=== PATIENT | male | born 1970 | race Caucasian/White ===

== ENCOUNTER 2020-04-08 13:34 | Emergency (ER) | payer OTHER, SELFPAY ==
[2020-04-08 13:55] VITALS: BP 145/98; PULSE 66; RESP 16; TEMP 36.9; O2SAT 98
[2020-04-08 14:40] LABS: Basophils Absolute Auto 0.1 K/mm3 (0.0-0.1); Basophils Percent Auto 0.7 % (0.2-1.2); Eosinophils Absolute Auto 0.1 K/mm3 (0-0.3); Eosinophils Percent Auto 1.7 % (0-4.4); Hematocrit 42.6 % (42.0-52.0); Hemoglobin 14.7 g/dL (14.0-18.0); Immature Granulocyte Absolute 0.02 K/mm3 (0.00-0.031); Immature Granulocyte Percent A 0.3 % (0-0.5); Lymphocytes Absolute Auto 1.85 K/mm3 (0.9-3.2); Lymphocytes Percent Auto 26.7 % (18.3-44.2); Mean Corpuscular HGB Conc 34.5 g/dl (32-36); Mean Corpuscular Hemoglobin 32.3 pg (26-34); Mean Corpuscular Volume 93.6 fl (80-100); Mean Platelet Volume 9.3 fl (7.4-10.4); Monocytes Absolute Auto 0.7 K/mm3 (0.1-0.6); Monocytes Percent Auto 9.5 % (2.6-8.5); Neutrophils Absolute Auto 4.2 K/mm3 (1.3-6.7); Neutrophils Percent Auto 61.1 % (45.5-73.1); Platelet Count Result 233 k/mm3 (150-375); Red Blood Count 4.55 M/mm3 (4.6-6.20); Red Cell Distribution Width 11.5 % (11.5-14.5); White Blood Count 6.9 K/mm3 (4.5-10.0)
[2020-04-08 14:58] LABS: CRP 0.6 mg/dL (<1.0)
--- NOTE | 2020-04-08 15:59 | ED.LOWEXIN ---
HPI - Extremity Injury (Lower) General Chief Complaint: Extremity Injury, Lower Stated Complaint: r/o dvt per urgent care Time Seen by Provider: 04/08/20 13:55 Source: patient Mode of arrival: ambulatory Limitations: no limitations History of Present Illness HPI Narrative: 49-year-old man Basically pretty healthy Complains of 1 day of pain and swelling behind his right knee He was evaluated at a urgent care earlier and they thought he might be at risk for DVT and referred him to the ER Patient notes that the pain started yesterday afternoon but got worse after he went for a walk today There was some question on his part of whether he might have been bitten or stung Notably his tenderness is pretty well localized in the medial posterior knee/distal thigh and there is no swelling or pain lower down in the calf Also he has no particular risk factors for venous thromboembolism Related Data Allergies Allergy/AdvReac Type Severity Reaction Status Date / Time latex Allergy Unknown Verified 12/12/17 12:42 Review of Systems Review of Systems: All systems reviewed & are unremarkable except as noted in HPI and below Constitutional: Constitutional: Denies chills, Denies fever(s) and Denies weakness Cardiovascular: Cardiovascular: Denies chest pain Respiratory: Respiratory: Denies cough and Denies dyspnea Musculoskeletal: Musculoskeletal: Denies myalgias, Reports arthralgias and Denies joint swelling Integumentary/Breasts: Comments: Redness PMFSH Family History Family History (Updated 12/12/17 @ 12:44 by DOCTOR UNKNOWN) Father Family history of cardiovascular disease Sibling Family history of cardiovascular disease Social History Social History Gender identity (if verbalized by the patient): Female Exam Const: General: no acute distress, well developed and awake Nutritional Appearance: well nourished Orientation/consciousness: patient oriented x3 (alert) Limitations: no limitations HENMT: Head: normocephalic and atraumatic Ears: external ears normal General nose exam: No nasal discharge present and no epistaxis Face and sinus: face symmetric Eyes: Conjunctivae: conjunctivae normal Sclera: sclerae normal EOM: EOMs intact bilaterally Neck: Neck: normal visual inspection, supple and no JVD Chest: Chest palpation & inspection: deferred Resp: Effort & Inspection: normal respiratory effort Auscultation: other (BS =) Cardio: Heart sounds: no gallops GI: Inspection: normal to inspection Back/Spine/Pelvis: Thoracic/Lumbar Spine: thoracic and lumbar spine normal to inspection Skin: General skin exam: normal color and no rashes or lesions noted Neuro: General: patient oriented x3 (alert) and moves all extremities Cranial nerves: Yes facial symmetry Speech: normal speech Extrem: General: full ROM Other: There is an area of faint erythema, mild induration, and tenderness measuring about 4 5 cm in the lower medial right thigh and the soft tissue overlying the insertion of the semimembranous muscles There may be a tiny pinpoint area which could be a bite in the center of this area There is no calf swelling or tenderness Psych: Affect: normal affect Course Vital Signs Vital signs: Vital Signs Temperature 36.9 C 04/08/20 13:55 Pulse Rate 66 04/08/20 13:55 Respiratory Rate 16 04/08/20 13:55 Blood Pressure 145/98 H 04/08/20 13:55 Pulse Oximetry 98 04/08/20 13:55 Temperature 36.9 C 04/08/20 13:55 Pulse Rate 66 04/08/20 13:55 Respiratory Rate 16 04/08/20 13:55 Blood Pressure 145/98 H 04/08/20 13:55 Pulse Oximetry 98 04/08/20 13:55 MDM - Extremity Injury (Lower) MDM Narrative Medical decision making narrative: Discussed with patient that exam and labs are inconsistent with DVT and that he probably has cellulitis, possibly staph, and possibility of an insect bite of some kind cannot be fully rule out Lab Data Result diagrams: 04/08/20 14:33
[2020-04-08 16:55] VITALS: BP 158/98; PULSE 73; RESP 16; O2SAT 99
== END 2020-04-08 16:55 | disposition home or self-care (01) ==
PROVIDERS: Emergency Provider Emergency Medicine
DX: L03.115 Cellulitis of right lower limb (principal)
CPT/HCPCS: 36415; 85025; 85380; 86140; 99283

== ENCOUNTER 2024-07-22 13:41 | Emergency (ER) | payer OTHER, SELFPAY ==
[2024-07-22 13:46] VITALS: BP 151/98; PULSE 84; RESP 14; TEMP 36.7; O2SAT 99
--- NOTE | 2024-07-22 13:59 | ED.LOWEXIN ---
HPI - Extremity Injury (Lower) General Chief Complaint: Extremity Injury, Lower <Lorraine Silver APRN - Last Filed: 07/22/24 14:02> Stated Complaint: left foot pain <Lorraine Silver APRN - Last Filed: 07/22/24 14:02> Time Seen by Provider: 07/22/24 13:45 <Lorraine Silver APRN - Last Filed: 07/22/24 14:02> Focused HPI: Patient is a 54-year-old male who presents to the ER with complaints of left lower extremity redness and swelling. He reports he noticed the extremity starting to swell yesterday. Patient reports he has pain in his left foot, ankle, calf, thigh. He also reports area has become tight and warm. Patient reports his only medical history is hyperlipidemia. Patient denies any shortness of breath, chest pain, back pain, recent fevers. GENERAL: Well-appearing, well-nourished, and in no acute distress. HEAD: Normocephalic, atraumatic. CHEST: Clear to auscultation. ?No respiratory distress. HEART: IRREGULAR, no history of atrial fib or other cardiac conditions NEURO: ?Alert and oriented x3. Patient screened in triage and initial orders placed.? ?Additional care and disposition to be based upon?diagnostic testing and treatment. <Lorraine Silver APRN - Last Filed: 07/22/24 14:02> History of Present Illness HPI Narrative: Agree with HPI. Erythema left foot at the MTP is extending up the ankle and then proximally towards the medial proximal thigh. No chest pain or shortness of breath. No systemic symptoms. Patient was asymptomatic when he had some atrial fibrillation in triage. Currently in sinus rhythm. <Arthur Messer MD - Last Filed: 07/22/24 19:08> Related Data Allergies/Adverse Reactions: Allergies Allergy/AdvReac Type Severity Reaction Status Date / Time latex Allergy Unknown Unknown Verified 07/22/24 15:17 <Lorraine Silver APRN - Last Filed: 07/22/24 14:02> Review of Systems Review of Systems: All systems reviewed & are unremarkable except as noted in HPI and below <Arthur Messer MD - Last Filed: 07/22/24 19:08> Constitutional: Constitutional: Reports no additional constitutional complaints <Arthur Messer MD - Last Filed: 07/22/24 19:08> Cardiovascular: Cardiovascular: Reports no additional cardiovascular complaints <Arthur Messer MD - Last Filed: 07/22/24 19:08> Respiratory: Respiratory: Reports no additional respiratory complaints <Artuhr Messer MD - Last Filed: 07/22/24 19:08> Gastrointestinal: Gastrointestinal: Reports no additional gastrointestinal complaints <Arthur Messer MD - Last Filed: 07/22/24 19:08> Musculoskeletal: Musculoskeletal: Reports no additional musculoskeletal complaints <Arthur Messer MD - Last Filed: 07/22/24 19:08> Integumentary/Breasts: Skin/Breast: Reports system reviewed and no additional complaints, except as docu <Arthur Messer MD - Last Filed: 07/22/24 19:08> PMFSH Past Medical History Medical History: Medical History (Updated 07/22/24 @ 19:07 by Arthur Messer MD) Hyperlipidemia Hypertension <Lorraine Silver [employer] - Last Filed: 07/22/24 14:02> Family History Family History: Family History (Updated 12/12/17 @ 12:44 by DOCTOR UNKNOWN) Father Family history of cardiovascular disease Sibling Family history of cardiovascular disease <Lorraine Silver APRN - Last Filed: 07/22/24 14:02> Social History Social History: Social History Gender identity (if verbalized by the patient): Female <Lorraine Silver APRN - Last Filed: 07/22/24 14:02> Exam Narrative: GENERAL: Well-appearing, well-nourished, and in no acute distress. HEAD: Normocephalic, atraumatic. ENT: Mucous membranes moist. NECK: Supple. CHEST: Clear to auscultation. No respiratory distress. HEART: Regular rate and rhythm. Normal peripheral pulses. EXTREMITIES: Normal range of motion. Erythema of the left foot especially at the MTPs in toes extending up to the ankle where there is mild edema. Lymphangitic streaking to the proximal thigh on the left medially. SKIN: Warm, dry, no rash. See above NEURO: Alert and oriented x3. PSYCH: Normal mood and affect. <Arthur Messer MD - Last Filed: 07/22/24 19:08> Course Course Emergency Course: Patient resting comfortably. Discussed results and treatment plan. Was briefly in AFib but it self resolved and he is now in a sinus rhythm. Discussed with Cardiology. Outpatient follow-up, no rate control medication or anticoagulation at this time. Discussed return precautions. <Arthur Messer MD - Last Filed: 07/22/24 19:08> Vital Signs Vital signs: Vital Signs Temperature 98.0 F 07/22/24 13:46 Pulse Rate 84 07/22/24 13:46 Respiratory Rate 14 07/22/24 13:46 Blood Pressure 151/98 H 07/22/24 13:46 Pulse Oximetry 99 07/22/24 13:46 Oxygen Delivery Room Air 07/22/24 13:46 Temperature 98.0 F 07/22/24 13:46 Pulse Rate 84 07/22/24 13:46 Respiratory Rate 14 07/22/24 13:46 Blood Pressure 151/98 H 07/22/24 13:46 Pulse Oximetry 99 07/22/24 13:46 Oxygen Delivery Room Air 07/22/24 13:46 <Lorraine Silver, [employer] - Last Filed: 07/22/24 14:02> Vital Signs Temperature 98.0 F 07/22/24 13:46 Pulse Rate 84 07/22/24 13:46 Respiratory Rate 14 07/22/24 13:46 Blood Pressure 151/98 H 07/22/24 13:46 Pulse Oximetry 99 07/22/24 13:46 Oxygen Delivery Room Air 07/22/24 13:46 Temperature 98.0 F 07/22/24 13:46 Pulse Rate 84 07/22/24 13:46 Respiratory Rate 14 07/22/24 13:46 Blood Pressure 151/98 H 07/22/24 13:46 Pulse Oximetry 99 07/22/24 13:46 Oxygen Delivery Room Air 07/22/24 13:46 <Arthur Messer MD - Last Filed: 07/22/24 19:08> MDM - Extremity Injury (Lower) Lab Data Result diagrams: 07/22/24 14:15 07/22/24 14:15 <Lorraine Silver, [employer] - Last Filed: 07/22/24 14:02> Labs: Lab Results 07/22/24 Range/Units 14:15 WBC 12.7 H (4.5-10.0) K/mm3 RBC 4.75 (4.6-6.20) M/mm3 Hgb 15.4 (14.0-18.0) g/dL Hct 43.4 (42.0-52.0) % MCV 91.4 (80-100) fl MCH 32.4 (26-34) pg MCHC 35.5 (32-36) g/dl RDW 11.8 (11.5-14.5) % Plt Count 289 (150-375) k/mm3 MPV 9.0 (7.4-10.4) fl Immature Gran % (Auto) 0.6 H (0-0.5) % Neut % (Auto) 72.4 (45.5-73.1) % Lymph % (Auto) 12.4 L (18.3-44.2) % Robertson % (Auto) 9.8 H (2.6-8.5) % Eos % (Auto) 4.4 (0-4.4) % Baso % (Auto) 0.4 (0.2-1.2) % Lymph # (Auto) 1.57 (0.9-3.2) K/mm3 Robertson # (Auto) 1.2 H (0.1-0.6) K/mm3 Eos # (Auto) 0.6 H (0-0.3) K/mm3 Baso # (Auto) 0.1 (0.0-0.1) K/mm3 Abs Immat Gran (auto) 0.08 H (0.00-0.031) K/mm3 Absolute Neuts (auto) 9.2 H (1.3-6.7) K/mm3 Absolute Nucleated RBC 0.000 (0.0-0.012) K/mm3 Nucleated RBC % 0.0 (0.0-0.2) % PT 15.1 H (11.1-14.7) Seconds INR 1.2 APTT 31.0 (22.3-36.8) Seconds Sodium 131 L (137-145) mmol/L Potassium 3.8 (3.4-5.0) mmol/L Chloride 98 (98-107) mmol/L Carbon Dioxide 21 L (22-30) mmol/L Anion Gap 12 (4-12) mmol/L BUN 9 (9-20) mg/dL Creatinine 0.72 (0.7-1.3) mg/dL Estim Creat Clear Calc 120 ml/min Estimated GFR > 60 (59 - ) Glucose 125 H (65-110) mg/dL Lactic Acid 1.4 (0.7-2.0) mmol/L Calcium 9.0 (8.4-10.2) mg/dL Total Bilirubin 1.1 (0.2-1.3) mg/dL AST 51 (17-59) U/L ALT 57 H (6-50) U/L Alkaline Phosphatase 75 (38-126) U/L Troponin I 0.020 (0.000-0.034) ng/mL NT-Pro-B Natriuret Pep 1310 H (19.9-100) pg/mL Total Protein 8.0 (6.3-8.2) g/dL Albumin 4.3 (3.5-5.1) g/dL <Lorraine Silver, [employer] - Last Filed: 07/22/24 14:02> Lab Results 07/22/24 Range/Units 14:15 WBC 12.7 H (4.5-10.0) K/mm3 RBC 4.75 (4.6-6.20) M/mm3 Hgb 15.4 (14.0-18.0) g/dL Hct 43.4 (42.0-52.0) % MCV 91.4 (80-100) fl MCH 32.4 (26-34) pg MCHC 35.5 (32-36) g/dl RDW 11.8 (11.5-14.5) % Plt Count 289 (150-375) k/mm3 MPV 9.0 (7.4-10.4) fl Immature Gran % (Auto) 0.6 H (0-0.5) % Neut % (Auto) 72.4 (45.5-73.1) % Lymph % (Auto) 12.4 L (18.3-44.2) % Robertson % (Auto) 9.8 H (2.6-8.5) % Eos % (Auto) 4.4 (0-4.4) % Baso % (Auto) 0.4 (0.2-1.2) % Lymph # (Auto) 1.57 (0.9-3.2) K/mm3 Robertson # (Auto) 1.2 H (0.1-0.6) K/mm3 Eos # (Auto) 0.6 H (0-0.3) K/mm3 Baso # (Auto) 0.1 (0.0-0.1) K/mm3 Abs Immat Gran (auto) 0.08 H (0.00-0.031) K/mm3 Absolute Neuts (auto) 9.2 H (1.3-6.7) K/mm3 Absolute Nucleated RBC 0.000 (0.0-0.012) K/mm3 Nucleated RBC % 0.0 (0.0-0.2) % PT 15.1 H (11.1-14.7) Seconds INR 1.2 APTT 31.0 (22.3-36.8) Seconds Sodium 131 L (137-145) mmol/L Potassium 3.8 (3.4-5.0) mmol/L Chloride 98 (98-107) mmol/L Carbon Dioxide 21 L (22-30) mmol/L Anion Gap 12 (4-12) mmol/L BUN 9 (9-20) mg/dL Creatinine 0.72 (0.7-1.3) mg/dL Estim Creat Clear Calc 120 ml/min Estimated GFR > 60 (59 - ) Glucose 125 H (65-110) mg/dL Lactic Acid 1.4 (0.7-2.0) mmol/L Calcium 9.0 (8.4-10.2) mg/dL Total Bilirubin 1.1 (0.2-1.3) mg/dL AST 51 (17-59) U/L ALT 57 H (6-50) U/L Alkaline Phosphatase 75 (38-126) U/L Troponin I 0.020 (0.000-0.034) ng/mL NT-Pro-B Natriuret Pep 1310 H (19.9-100) pg/mL Total Protein 8.0 (6.3-8.2) g/dL Albumin 4.3 (3.5-5.1) g/dL <Arthur Messer MD - Last Filed: 07/22/24 19:08> Imaging Data Radiologist's impression: ITS Impressions Venous Doppler Study 07/22/24 14:47 IMPRESSION: 1. No deep venous thrombosis. Ankle X-Ray 07/22/24 14:54 IMPRESSION: 1. No acute osseous abnormality. Foot X-Ray 07/22/24 14:54 IMPRESSION: 1. No acute osseous abnormality. <Arthur Messer MD - Last Filed: 07/22/24 19:08> Discharge Plan Discharge Clinical Impression: Cellulitis and abscess of left leg, A-fib <Lorraine Silver APRN - Last Filed: 07/22/24 14:02> Patient Disposition: Home, Self-Care <Lorraine Silver APRN - Last Filed: 07/22/24 14:02> Condition: Stable <Lorraine Silver APRN - Last Filed: 07/22/24 14:02> Instructions: Antibiotic Form, A-fib (Atrial Fibrillation) (ED), Cellulitis (ED) <Lorraine Silver APRN - Last Filed: 07/22/24 14:02> Additional Instructions: Return ER if your redness and swelling is worsening, you have fever 100.4? F, you cannot keep down food/water/medication, or you have additional concerns. <Lorraine Silver APRN - Last Filed: 07/22/24 14:02> Patient Language: Wallisian <Lorraine Silver APRN - Last Filed: 07/22/24 14:02> Prescriptions: New sulfamethoxazole-trimethoprim [Bactrim DS] 800-160 mg tablet 1 tablet PO Q12H Qty: 20 0RF hydrocodone-acetaminophen 5-325 mg tablet 1 tablet PO Q6H PRN (Reason: pain) Qty: 10 0RF No Action sulfamethoxazole-trimethoprim [Bactrim DS] 800-160 mg tablet 2 tablet PO Q12H Qty: 28 0RF <Lorraine Silver APRN - Last Filed: 07/22/24 14:02> Follow-up/Referrals: Eusebio Chapin MD [Physician] - 1 Week (OUR OFFICE WILL CALL YOU WITH APPOINTMENT INFORMATION) Farhat Madrigal MD [Physician] - 1 Week PHYSICIAN,SECONDARY SET UP MAN [Non-Staff] - <Lorraine Silver, [employer]ER - Last Filed: 07/22/24 14:02>
[2024-07-22 14:22] LABS: Basophils Absolute Auto 0.1 K/mm3 (0.0-0.1); Basophils Percent Auto 0.4 % (0.2-1.2); Eosinophils Absolute Auto 0.6 K/mm3 (0-0.3); Eosinophils Percent Auto 4.4 % (0-4.4); Hematocrit 43.4 % (42.0-52.0); Hemoglobin 15.4 g/dL (14.0-18.0); Immature Granulocyte Absolute 0.08 K/mm3 (0.00-0.031); Immature Granulocyte Percent A 0.6 % (0-0.5); Lymphocytes Absolute Auto 1.57 K/mm3 (0.9-3.2); Lymphocytes Percent Auto 12.4 % (18.3-44.2); Mean Corpuscular HGB Conc 35.5 g/dl (32-36); Mean Corpuscular Hemoglobin 32.4 pg (26-34); Mean Corpuscular Volume 91.4 fl (80-100); Monocytes Absolute Auto 1.2 K/mm3 (0.1-0.6); Monocytes Percent Auto 9.8 % (2.6-8.5); Neutrophils Absolute Auto 9.2 K/mm3 (1.3-6.7); Neutrophils Percent Auto 72.4 % (45.5-73.1); Platelet Count Result 289 k/mm3 (150-375); Red Blood Count 4.75 M/mm3 (4.6-6.20); Red Cell Distribution Width 11.8 % (11.5-14.5); White Blood Count 12.7 K/mm3 (4.5-10.0)
[2024-07-22 14:33] LABS: Alanine Aminotransferase 57 U/L (6-50); Albumin Level 4.3 g/dL (3.5-5.1); Alkaline Phosphatase 75 U/L (38-126); Anion Gap 12 mmol/L (4-12); Aspartate Amino Transferase 51 U/L (17-59); Bilirubin,Total 1.1 mg/dL (0.2-1.3); Blood Urea Nitrogen 9 mg/dL (9-20); Carbon Dioxide 21 mmol/L (22-30); Chloride 98 mmol/L (98-107); Estimated CRCL calculation 120 ml/min; Estimated Glomerular Filt Rate > 60; Glucose 125 mg/dL (65-110); INR 1.2; Lactic Acid Reflex 1.4 mmol/L (0.7-2.0); Potassium 3.8 mmol/L (3.4-5.0); Prothrombin Time 15.1 Seconds (11.1-14.7); Sodium 131 mmol/L (137-145)
[2024-07-22 15:46] LABS: NT Pro B Type Natriuretic Pept 1310 pg/mL (19.9-100)
== END 2024-07-22 16:18 | disposition home or self-care (01) ==
PROVIDERS: Registered Nurse; Emergency Provider Emergency Medicine
DX: L03.116 Cellulitis of left lower limb (principal); L02.416 Cutaneous abscess of left lower limb; I48.91 Unspecified atrial fibrillation; E78.5 Hyperlipidemia, unspecified; I10 Essential (primary) hypertension
CPT/HCPCS: 36415; 73610; 73630; 80053; 83605; 83880; 84484; 85025; 85610; 85730; 93005; 93971; 99284

== ENCOUNTER 2024-07-26 09:27 | Emergency (ER) | payer OTHER, SELFPAY ==
[2024-07-26 09:29] VITALS: BP 145/89; PULSE 96; RESP 20; TEMP 36.6; O2SAT 100
--- OUTSIDE RECORDS SUMMARY | 2024-07-26 10:00 | XMS_ITS | Data Portability ---
Author Organization [facility] [employer], Main Office Address [address] [place] [address] Assessment No assessment recorded. Plan of Treatment Reminders Order Date Submit Date Provider Last Modified By Organization Details Last Modified Time Details Appointments None recorded. Lab HbA1c (hemoglobin A1c), blood [address] (Lab), [address] [place], [address], 4 08:17:20 PSA, serum or plasma [address] (Lab), [address] [place], [address], 4 08:17:20 CMP, serum or plasma [address] (Lab), [address] [place], [address], 4 08:17:20 lipid panel, serum [address] (Lab), [address] [place], [address], 4 08:17:20 lipid panel, serum [address], [address] [place], [address], 3 08:16:21 hepatic function panel, serum [address], [address] [place], [address], 3 08:16:21 lipid panel, serum [address] [facility], [address] [place], [address], 20:13:32 TSH, serum, reflex free T4 [address], [address] [place], [address], 08:01:54 CBC w/ auto diff [address] [facility], [address] [place], [address], 19:49:42 PSA, serum or plasma [address], [address] [place], [address], 08:01:55 CMP, serum or plasma [address] [facility], [address] [place], [address], 20:13:26 HbA1c (hemoglobin A1c), blood [address], [address] [place], [address], 08:00:08 Referral None recorded. Procedures cerumen removal using irrigation (PROC) 2023 024 [email or web address] Not available 14:21:51 Surgeries None recorded. Imaging None recorded. Medication Orders Debrox 6.5 % ear drops 2023 024 [facility] #[id number], [address], [place], [place], [id number], 4 11:22:33 lisinopril 10 mg tablet 2023 024 [facility] #36876, [address], [place], [place], [id number], 4 10:23:15 lisinopril 10 mg tablet 2022 023 [facility] #07225, [address], [place], [place], [id number], 3 09:16:35 rosuvastati n 5 mg tablet 2022 023 [facility] #22843, [address], [place], [place], [id number], 3 09:16:34 benzonatate 200 mg capsule [address] [facility]63654, [address] [place], [id number], 4 10:03:52 azithromyci n 250 mg tablet [address] [facility] #73839, [address], [place], [place], [id number], 3 09:06:50 Patient TargetsNo targets recorded. Patient Instructions Encounter Date Encounter Id Patient Instructions Last Modified By Organization Details Last Modified Time 08/17/2022 [id number] 2 week follow up labs, htn, cold symptoms. Not available 08/17/2022 16:46:28 08/31/2022 [id number] 3 mo fu mikhail, htn, lipid. Not available 08/31/2022 09:17:33 Reason for Referral None Reported. Results Created Date Observation Date Name Description Value Unit Range Abnormal Flag Note LastModifiedBy Organization Detail LastModifiedTime 08/19/19 23 08/18/2022 CBC/C OMPLE TE BLD COUNT W/DIF F white blood cells 4.4 x10'3 /uL 4.2-10 .8 Not Available [facility] (Lab) [address] [place], [address], 08/18/2022 19:49:42 08/19/19 23 08/18/2022 CBC/C OMPLE TE BLD COUNT W/DIF F red blood cells 4.95 x10'6 /uL 4.10-5 .80 Not Available [facility] (Lab) [address] [place], [address], 08/18/2022 19:49:42 08/19/19 23 08/18/2022 CBC/C OMPLE TE BLD COUNT W/DIF F hemoglobin 16.1 g/dL 13.2-1 7.0 Not Available [facility] (Lab) [address] [place], [address], 08/18/2022 19:49:42 08/19/19 23 08/18/2022 CBC/C OMPLE TE BLD COUNT W/DIF F hematocrit 46.0 % 39.3-5 0.0 Not Available [facility] (Lab) [address] [place], [address], 08/18/2022 19:49:42 08/19/19 23 08/18/2022 CBC/C OMPLE TE BLD COUNT W/DIF F mean red cell volume 92.9 fL 80.0-9 7.0 Not Available [facility] (Lab) [address] [place], [address], 08/18/2022 19:49:42 08/19/19 23 08/18/2022 CBC/C OMPLE TE BLD COUNT W/DIF F mean red cell hemoglobin 32.5 pg 27.0-3 3.0 Not Available [facility] (Lab) [address] [place], [address], 08/18/2022 19:49:42 08/19/19 23 08/18/2022 CBC/C OMPLE TE BLD COUNT W/DIF F mean RBC HGB concentratio n 35.0 g/dL 31.0-3 6.0 Not Available [facility] (Lab) [address] [place], [address], 08/18/2022 19:49:42 08/19/19 23 08/18/2022 CBC/C OMPLE TE BLD COUNT W/DIF F red cell distribution width 11.9 % 11.8-1 5.5 Not Available [facility] (Lab) [address] [place], [address], 08/18/2022 19:49:42 08/19/19 23 08/18/2022 CBC/C OMPLE TE BLD COUNT W/DIF F platelets 286 x10'3 /uL 150-40 0 Not Available [facility] (Lab) [address] [place], [address], 08/18/2022 19:49:42 08/19/19 23 08/18/2022 CBC/C OMPLE TE BLD COUNT W/DIF F mean platelet volume 10.4 fL 9.0-12 .4 Not Available [facility] (Lab) [address] [place], [address], 08/18/2022 19:49:42 08/19/19 23 08/18/2022 CBC/C OMPLE TE BLD COUNT W/DIF F neutrophils 39.5 % 39.0-7 2.0 Not Available [facility] (Lab) [address] [place], [address], 08/18/2022 19:49:42 08/19/19 23 08/18/2022 CBC/C OMPLE TE BLD COUNT W/DIF F lymphocytes 39.9 % 16.0-4 7.0 Not Available [facility] (Lab) [address] [place], [address], 08/18/2022 19:49:42 08/19/1908/18/2022 CBC/C OMPLE TE BLD COUNT W/DIF F monocytes 13.0 % 5.0-12 .0 high Not Available [facility] (Lab) [address] [place], [address], 08/18/2022 19:49:42 08/19/19 23 08/18/2022 CBC/C OMPLE TE BLD COUNT W/DIF F eosinophils 5.5 % 1.0-7. 0 Not Available [facility] (Lab) [address] [place], [address], 08/18/2022 19:49:42 08/19/19 23 08/18/2022 CBC/C OMPLE TE BLD COUNT W/DIF F basophils 1.6 % 0.0-2. 0 Not Available [facility] (Lab) [address] [place], [address], 08/18/2022 19:49:42 08/19/1908/18/2022 CBC/C OMPLE TE BLD COUNT W/DIF F immature granulocytes 0.5 % 0.00-0 .50 Not Available [facility] (Lab) [address] [place], [address], 08/18/2022 19:49:42 08/19/1908/18/2022 CBC/C OMPLE TE BLD COUNT W/DIF F neutrophils, absolute count 1.74 x10'3 /uL 1.5-8. 0 Not Available [facility] (Lab) [address] [place], [address], 08/18/2022 19:49:42 08/19/19 23 08/18/2022 CBC/C OMPLE TE BLD COUNT W/DIF F lymphocytes, absolute count 1.75 x10'3 /uL 1.07-3 .43 Not Available [facility] (Lab) [address] [place], [address], 08/18/2022 19:49:42 08/19/19 23 08/18/2022 CBC/C OMPLE TE BLD COUNT W/DIF F monocytes, absolute count 0.57 x10'3 /uL 0.29-0 .99 Not Available [facility] (Lab) [address] [place], [address], 08/18/2022 19:49:42 08/19/19 23 08/18/2022 CBC/C OMPLE TE BLD COUNT W/DIF F eosinophils, absolute count 0.24 x10'3 /uL 0.02-0 .53 Not Available [facility] (Lab) [address] [place], [address], 08/18/2022 19:49:42 08/19/19 23 08/18/2022 CBC/C OMPLE TE BLD COUNT W/DIF F basophils, absolute count 0.07 x10'3 /uL 0.01-0 .08 Not Available [facility] (Lab) [address] [place], [address], 08/18/2022 19:49:42 08/19/19 23 08/18/2022 CBC/C OMPLE TE BLD COUNT W/DIF F immature granulocytes ,absolute 0.02 x10'3 /uL 0.00-0 .05 Not Available [facility] (Lab) [address] [place], [address], 08/18/2022 19:49:42 08/19/19 23 08/18/2022 CBC/C OMPLE TE BLD COUNT W/DIF F nucleated red blood cells 0.0 % -0 Not Available [facility] (Lab) [address] [place], [address], 08/18/2022 19:49:42 08/19/19 23 08/18/2022 CBC/C OMPLE TE BLD COUNT W/DIF F NRBC# 0.00 x10'3 /uL Not Available [facility] (Lab) [address] [place], [address], 08/18/2022 19:49:42 08/19/19 23 08/18/2022 COMPR EHENS KARISHMA METAB OLIC PANEL sodium 137 mmol/ L 137-14 5 Not Available [facility] (Lab) [address] [place], [address], 08/18/2022 20:13:26 08/19/19 23 08/18/2022 COMPR EHENS KARISHMA METAB OLIC PANEL potassium 4.5 mmol/ L 3.5-5. 1 Not Available [facility] (Lab) [address] [place], [address], 08/18/2022 20:13:26 08/19/19 23 08/18/2022 COMPR EHENS KARISHMA METAB OLIC PANEL chloride 104 mmol/ L 98-107 Not Available [facility] (Lab) [address] [place], [address], 08/18/2022 20:13:26 08/19/19 23 08/18/2022 COMPR EHENS KARISHMA METAB OLIC PANEL carbon dioxide 26 mmol/ L 22-30 Not Available [facility] (Lab) [address] [place], [address], 08/18/2022 20:13:26 08/19/19 23 08/18/2022 COMPR EHENS KARISHMA METAB OLIC PANEL anion gap 11.5 mmol/ L 14-22 low Not Available [facility] (Lab) [address] [place], [address], 08/18/2022 20:13:26 08/19/19 23 08/18/2022 COMPR EHENS KARISHMA METAB OLIC PANEL glucose 97 mg/dL 70-99 Not Available [facility] (Lab) [address] [facility] [place], [address], 08/18/2022 20:13:26 08/19/19 23 08/18/2022 COMPR EHENS KARISHMA METAB OLIC PANEL BUN 12 mg/dL 8-19 Not Available [facility] (Lab) [address] [place], [address], 08/18/2022 20:13:26 08/19/19 23 08/18/2022 COMPR EHENS KARISHMA METAB OLIC PANEL creatinine 0.75 mg/dL 0.66-1 .25 Not Available [facility] (Lab) [address] [facility] [place], [address], 08/18/2022 20:13:26 08/19/19 23 08/18/2022 COMPR EHENS KARISHMA METAB OLIC PANEL GFR >60 Refer ence Range : [place] [facility] GFR Healt hy Adult : >60 mL/mi n/1.7 3 m2 Chron ic Kidne y Disea se: 15-60 mL/mi n/1.7 3 m2 Kidne y Failu re: <15/m L/min /1.73 m2 www.n iddk. nih.g ov The MDRD study equat ion has not been valid ated in child nunu <18 years of age; pregn ant women ; the elder ly >85 years of age; or in some racia l or ethni c subgr oups, such as [facility] nics. Outsi de the valid ated nai eters , estim ated GFR is less accur ate, requi ring clini eloisa judgm ent on a case- by-ca se basis . Clini eloisa inter preta tion for other races and ages must be made by the clini porter. The MDRD study equat ion has not been valid ated for the evalu ation of serum creat inine relat ed to nutri shraddha l statu s or medic ation usage . For perso ns <18 years of age, a pedia tric GFR calcu lator is avail able on the [facility] websi te: https ://sharmin solis.loly duval.o rg/pr ofess ional s/kdo qi/gf r_cal culat or Not Available [facility] (Lab) [address] [facility] [place], [address], 08/18/2022 20:13:26 08/19/19 23 08/18/2022 COMPR EHENS KARISHMA METAB OLIC PANEL alkaline phosphatase 79 U/L 38-126 Not Available [facility] (Lab) [address] [facility], [address], 08/18/2022 20:13:26 08/19/19 23 08/18/2022 COMPR EHENS KARISHMA METAB OLIC PANEL alanine aminotransfe rase 42 U/L 0-50 Not Available [facility] (Lab) [address] [place], [address], 08/18/2022 20:13:26 08/19/19 23 08/18/2022 COMPR EHENS KARISHMA METAB OLIC PANEL aspartate aminotransfe rase 40 U/L 15-46 Not Available [facility] (Lab) [address] [place], [address], 08/18/2022 20:13:26 08/19/19 23 08/18/2022 COMPR EHENS KARISHMA METAB OLIC PANEL bilirubin, total 0.60 mg/dL 0.20-1 .30 Not Available [facility] (Lab) [address] [place], [address], 08/18/2022 20:13:26 08/19/19 23 08/18/2022 COMPR EHENS KARISHMA METAB OLIC PANEL calcium 9.7 mg/dL 8.4-10 .2 Not Available [facility] (Lab) [address] [place], [address], 08/18/2022 20:13:26 08/19/19 23 08/18/2022 COMPR EHENS KARISHMA METAB OLIC PANEL total protein 7.7 g/dL 6.3-8. 2 Not Available [facility] (Lab) [address] [place], [address], 08/18/2022 20:13:26 08/19/19 23 08/18/2022 COMPR EHENS KARISHMA METAB OLIC PANEL albumin 4.3 g/dL 3.4-5. 0 Not Available [facility] (Lab) [address] [place], [address], 08/18/2022 20:13:26 08/19/19 23 08/18/2022 COMPR EHENS KARISHMA METAB OLIC PANEL globulin 3.4 g/dL 2.6-4. 2 Not Available [facility] (Lab) [address] [place], [address], 08/18/2022 20:13:26 08/19/19 23 08/18/2022 COMPR EHENS KARISHMA METAB OLIC PANEL A/G ratio 1.3 ratio 1.0-2. 0 Not Available [facility] (Lab) [address] [place], [address], 08/18/2022 20:13:26 08/19/19 23 08/18/2022 LIPID PANEL cholesterol 257 mg/dL 140-19 9 high NIH KATLIN NSUS RECOM MENDA TION FOR CRIS STERO L: ADULT CHILD LOW RISK: <200 <170 BORDE RLINE : <200- 239 ----- HIGH RISK: >240 >200 Not Available [facility] (Lab) [address] [place], [address], 08/18/2022 20:13:32 08/19/19 23 08/18/2022 LIPID PANEL triglyceride s 171 mg/dL 0-150 high NIH KATLIN NSUS REPOR T RECOM MENDA TION FOR TRIGL YCERI SILVANA: ADULT CHILD LOW RISK: <150 ----- BODER LINE: 150-1 99 ----- HIGH RISK: >200 ----- Not Available [facility] (Lab) [address] [place], [address], 08/18/2022 20:13:32 08/19/19 23 08/18/2022 LIPID PANEL HDL cholesterol 46 mg/dL 40- Not Available [facility] (Lab) [address] [place], [address], 08/18/2022 20:13:32 08/19/19 23 08/18/2022 LIPID PANEL LDL cholesterol, calculated 177 mg/dL 0-130 high NIH KATLIN NSUS REPOR T RECOM MENDA TIONS FOR LDL: ADULT CHILD LOW RISK <130 <110 (OPTI MAL LDL) <100 ----- BORDE RLINE : 130-1 59 ----- HIGH RISK: >160 >130 A TRIGL YCERI DE RESUL T >400 INVAL IDATE S THE CALCU LATIO N FOR LDL FRACT IONAT ION - THE LDL RESUL T WILL NOT BE REPOR THELMA. Not Available [facility] (Lab) [address] [place], [address], 08/18/2022 20:13:32 08/19/19 23 08/18/2022 TSH W/REF BISHOP FT4 TSH with reflex free T4 1.190 uIU/m L 0.465- 4.680 Not Available [facility] (Lab) [address] [place], [address], 08/18/2022 20:39:46 08/19/19 23 08/18/2022 PSA SCREE N PSA medicare screen 0.45 NG/mL 0.00-4 .00 Not Available [facility] (Lab) [address] [place], [address], 08/18/2022 20:39:52 08/19/19 23 08/18/2022 HEMOG LOBIN A1C HA1C 5.3 % 4.0-6. 0 Diabe jagruti Scree carina Crite lucita: <5.7% Consi stent with absen ce of diabe jagruti 5.7-6 .4% Consi stent with incre ased risk for diabe jagruti (pred iabet es) >OR=6 .5% Consi stent with diabe jagruti REFER ENCE: Diabe jagruti Care 2016, 39(Kirk ppl.1 ):s13 -s22 Not Available [facility] (Lab) [address] [facility], [place], [address], 08/18/2022 21:52:38 Result Notes None recorded. Problems Name Problem SNOMED Code Status Onset Date Resolution Date Notes Provider Name and Address Organization Details Recorded Time Disorder of shoulder 103110380 Active Not Available [facility] 3 07:30:26 Hyperchole sterolemia 48528774 Active 2016 Not Available [facility] 3 07:30:26 Body mass index 30+ - obesity 774142406 Active Not Available [facility] 3 07:30:26 Insomnia 239521764 Active Not Available [facility] 3 07:30:26 Shoulder joint pain 069479003 Active Not Available [facility] 3 07:30:26 Disorder of rotator cuff 572938503 Active Not Available [facility] 3 07:30:26 Obesity 995489180 Active Not Available [facility] 3 07:30:26 Hyperlipid emia 30691032 Active Not Available [facility] 3 07:30:26 Disorder of bursa of shoulder region 88894595 Active Not Available [facility] 3 07:30:26 Allergic rhinitis 84211162 Active 2017 Not Available [facility] 3 07:30:26 Liver enzymes level above reference range 283333900 Active 2018 Not Available [facility] 3 07:30:26 Fatigue 19141543 Active Not Available [facility] 3 07:30:26 Cough 42376992 Active 2022 Divya Garcia NP [address] [facility] [facility] [address], [place], [address] , [place] [employer] [place] [employer] 3 16:43:10 Acute bronchitis 16945429 Active 2022 Divya Garcia NP [address] [facility] [facility] [address], [place], [address] , [employer] 3 16:43:55 Impacted cerumen of bilateral ears 6039012590333 108 Active 2022 Divya Garcia NP [address], [place], [address] , [employer] 3 16:45:05 Essential hypertensi on 77332135 Active 2022 Divya Garcia NP [address], [place], [address] , [employer] 3 16:46:30 Obese 341533279 Active 2022 Divya Garcia NP [address], [place], [address] , [employer] 3 09:22:38 Disorder of prostate 22837935 Active 2023 GRACIELA Caceres [address], [place], [address] , [employer] 4 10:18:09 Impacted cerumen in left ear 9632379605527 101 Active 2023 GRACIELA Caceres [address], [place], [address] , [employer] 4 13:24:14 Problem Notes None recorded. Procedures Surgical History Date Name Laterality Status Provider Name and Address Organization Details Recorded Time 4 Cerumen Removal completed GRACIELA Caceres [address], [place], [address], [employer] 08/11/2023 12:36:41 4 Cerumen Removal completed GRACIELA Caceres [address], [place], [address], [employer] 08/09/2023 11:21:41 3 Cerumen Removal completed Divya Garcia NP [address], [place], [address], [facility] 08/17/2022 17:01:31 4 complete repair of rotator cuff completed Divya Burnette RN [facility] 08/17/2022 16:28:53 0 complete repair of rotator cuff completed Divya Burnette RN [facility] 08/17/2022 16:29:03 Imaging Results None recorded. Procedure Notes None recorded. Medical Equipment None Reported. Allergies Allergen ID Allergen Name Allergen Category Reaction Reaction Severity Criticality Documentation Date Start Date Code Code System Note Provider Name and Address Organization Details Recorded Time 49147 latex environme nt,medica tion rash Not available Not available 07/20/2022 02499 91 RxNorm Not Available [facility] 3 07:34:57 Medications Name Sig Start Date Stop Date Status Note LastModified by Organization Details LastModified Time amoxicillin 500 mg capsule active Not Available Not Available Not Available doxycycline hyclate 100 mg capsule active Not Available Not Available N ot Available atorvastati n 20 mg tablet active Not Available Not Available Not Available cetirizine 10 mg tablet TAKE 1 TABLET BY MOUTH DAILY 08/08 completed Not Available Not Available Not Available azithromyci n 250 mg tablet TK 2 TS PO ON DAY 1, THEN TK 1 T PO D FOR 4 DAYS 08/31 completed Not Available Not Available Not Available pravastatin 40 mg tablet TAKE 1 TABLET BY MOUTH NIGHTLY (last fill until seen 11/19/19) 08/17 completed Not Available Not Available Not Available ibuprofen 800 mg tablet 08/24 completed Not Available Not Available Not Available benzonatate 200 mg capsule TAKE 1 CAPSULE BY MOUTH THREE TIMES DAILY 08/08 completed Not Available Not Available Not Available hydrocodone 5 mg-acetamin ophen 325 mg tablet active Not Available Not Available No t Available prednisone 20 mg tablet 11/10 completed Not Available Not Available Not Available Debrox 6.5 % ear drops INSTILL 5 DROPS INTO AFFECTED EAR(S) BY OTIC ROUTE 2 TIMES PER DAY 2023 active Not Available Not Available Not Avai lable clobetasol 0.05 % topical cream active Not Available Not Available Not Available acetaminoph en 300 mg-codeine 30 mg tablet active Not Available Not Available Not Available oxycodone-a cetaminophe n 5 mg-325 mg tablet 06/11 completed Not Available Not Available Not Available hydrocodone 7.5 mg-acetamin ophen 325 mg tablet 12/14 completed Not Available Not Available Not Available cephalexin 500 mg capsule 06/11 completed Not Available Not Available Not Available lisinopril 10 mg tablet TAKE 1 TABLET BY MOUTH EVERY DAY active Not Available Not Available No t Available montelukast 10 mg tablet active Not Available Not Available Not Available pravastatin 20 mg tablet TAKE 1 TABLET BY MOUTH EVERY NIGHT AT BEDTIME active Not Available Not Available No t Available zolpidem 5 mg tablet active Not Available Not Available No t Available zolpidem 10 mg tablet TAKE 1 TABLET BY MOUTH EVERY DAY AT BEDTIME 08/17 completed Not Available Not Available Not Available methylpredn isolone 4 mg tablets in a dose pack 12/14 completed Not Available Not Available Not Available ipratropium bromide 42 mcg (0.06 %) nasal spray active Not Available Not Available Not Available ondansetron 4 mg disintegrat ing tablet 08/31 completed Not Available Not Available Not Available fluticasone propionate 50 mcg/actuati on nasal spray,suspe nsion active Not Available Not Available Not Available diazepam 5 mg tablet 12/14 completed Not Available Not Available Not Available amoxicillin 875 mg-potassiu m clavulanate 125 mg tablet TAKE 1 TABLET BY MOUTH TWICE DAILY 08/08 completed Not Available Not Available Not Available rosuvastati n 5 mg tablet TAKE 1 TABLET BY MOUTH EVERY DAY active Not Available Not Available No t Available rosuvastati n 10 mg tablet TAKE 1 TABLET BY MOUTH EVERY DAY AT BEDTIME active Not Available Not Available No t Available Belsomra 10 mg tablet Take 1 tablet every day by oral route at bedtime for 30 days. active Not Available Not Available No t Available Vitals Date Recorded Body weight Body mass index (BMI) Body height Body temperature Heart rate Respiratory rate Oxygen saturation Oxygen saturation in Arterial blood by Pulse oximetry Pain severity - 0-10 verbal numeric rating [Score] - Reported Systolic blood pressure Diastolic blood pressure Provider Name and Address Organization Details Last Updated DateTime 3 301985. 19 g 33.2 kg/m2 177.8 cm 98 [degF] 67 /min 16 /min 97 % 97 % 0 172 mm[Hg] 108 mm[Hg] Divya Burnette RN [facility] [employer] [facility] 3 16:31:35 Date Recorded Body height Body mass index (BMI) Body weight Body temperature Heart rate Respiratory rate Oxygen saturation Oxygen saturation in Arterial blood by Pulse oximetry Pain severity - 0-10 verbal numeric rating [Score] - Reported Systolic blood pressure Diastolic blood pressure Provider Name and Address Organization Details Last Updated DateTime 3 177.8 cm 32.4 kg/m2 407829. 23 g 99.1 [degF] 67 /min 16 /min 96 % 96 % 0 140 mm[Hg] 80 mm[Hg] Divya Burnette RN [facility] [employer] [facility] 3 09:09:07 Date Recorded Body height Body mass index (BMI) Body weight Body temperature Respiratory rate Oxygen saturation Oxygen saturation in Arterial blood by Pulse oximetry Heart rate Pain severity - 0-10 verbal numeric rating [Score] - Reported Systolic blood pressure Diastolic blood pressure Provider Name and Address Organization Details Last Updated DateTime 4 177.8 cm 32.5 kg/m2 843311. 93 g 97.4 [degF] 20 /min 96 % 96 % 92 /min 0 160 mm[Hg] 110 mm[Hg] Divya Burnette RN [facility] [employer] [facility] 4 10:06:35 Date Recorded Body height Provider Name an d Address Organization Details Last Updated DateTime 08/11/2023 177.8 cm Divya Burnette RN [facility] [employer] [facility] 08/11/2023 12:01:58 Social History Question Answer Notes LastModified by Organizat ion Details LastModified Time Tobacco Smoking Status Never Smoker Divya Burnette RN [facility], [facility] [employer] 08/17/2022 16:26:37 Do You Have An Advance Directive? No Information not available 08/17/2022 What Is Your Level Of Alcohol Consumption? Occasional Information not available 08/17/2022 Is Blood Transfusion Acceptable In An Emergency? Yes Information not available 08/17/2022 What Is Your Level Of Caffeine Consumption? Occasional Coffee Information not available 08/17/2022 What Is Your Code Status? Full Code Information not available 08/17/2022 In The 14 Days Before Symptom Onset, Have You Had Close Contact With A Laboratory-confi rmed COVID-19 While That Case Was Ill? No Information not available 08/17/2022 In The 14 Days Before Symptom Onset, Have You Had Close Contact With A Person Who Is Under Investigation For COVID-19 While That Person Was Ill? No Information not available 08/17/2022 Are You Currently Employed? Yes Information not available 08/17/2022 What Type Of Diet Are You Following? REGULAR Information not available 08/17/2022 What Is Your Occupation? [id number] Information not available 07/20/2022 How Many Days Of Moderate To Strenuous Exercise, Like A Brisk Walk, Did You Do In The Last 7 Days? 5 Information not available 08/17/2022 On Those Days That You Engage In Moderate To Strenuous Exercise, How Many Minutes, On Average, Do You Exercise? 30 Information not available 08/17/2022 Have There Been Any Changes To Your Family Or Social Situation? No Information not available 08/17/2022 Do You Use Insect Repellent Routinely? No Information not available 08/17/2022 [facility] 08/17/2022 Do You Have A Medical Power Of Financial Market Dealer? No Information not available 08/17/2022 How Many Children Do You Have? 0 Information not available 08/17/2022 Do You Have Any Pets? No Information not available 08/17/2022 What Is Your Relationship Status? Single Information not available 08/17/2022 Do You Use Your Seat Belt Or Car Seat Routinely? Yes Information not available 08/17/2022 Do You Have Smoke And Carbon Monoxide Detectors In Your Home? Yes Information not available 08/17/2022 Are You Passively Exposed To Smoke? No Information not available 08/17/2022 Are There Any Smokers In Your House? No Information not available 08/17/2022 Do You Participate In Social Media? No Information not available 08/17/2022 Do You Feel Stressed (tense, Restless, Nervous, Or Anxious, Or Unable To Sleep At Night)? [id number] Information not available 08/09/2023 Do You Use Any Illicit Or Recreational Drugs? No Information not available 08/17/2022 Do You Use Sunscreen Routinely? Yes Information not available 08/17/2022 Have You Recently Traveled Abroad? No Information not available 08/17/2022 Sex: Unknown Functional Status Question Answer Note LastModified by Organization D etails LastModified Time What is your exercise level? Moderate Information not available 08/17/2022 Mental Status None recorded. Family History Nothing Reported. Medical History Condition Response HIGH CHOLESTEROL / HYPERLIPIDEMIA Y HYPERTENSION Y Immunizations Vaccine Type Date Status Note Provider Nam e and Address Organization Details Recorded Time Influenza, split virus, trivalent, preservative 5 completed Not Available [facility] 07/20/2022 07:34:48 influenza, unspecified formulation 6 completed Not Available [facility] 07/20/2022 07:34:48 Tdap 8 completed Not Available [facility] 07/20/2022 07:34:48 Past Encounters Encounter ID Performer Location Encounter Start Date Encounter Closed Date Diagnosis/Indication Diagnosis SNOMED-CT Code Diagnosis ICD10 Code Diagnosis Note [id number] [facility] [address] [place] [address] 06/10/2021 00:00:00 06/10/2021 15:00:00 [id number] Divya Garcia NP [facility] [address] [place] [address] 08/17/2022 16:13:45 08/17/2022 16:59:31 Acute bronchitis 05728792 J20.9 Benzonatat e prn. Zpak. Impacted c erumen of bilateral ears 8651739135 872083 H61.23 Irrigation bilaterall y completed. Essential hypertension 85800232 I10 <2 gm sodium diet. Avoid caffeine. No decongesta nts. Stop otc cold meds. Get labs. FU in 2 weeks to see if meds needed. Anemia screening 8321698 07 Z13.0 Diabetes m carlos manuelitus screening 939441698 Z13.1 Thyroid di sorder screening 234835259 Z13.29 Hyperlipid emia screening 182803163 Z13.220 Screening for malignant neoplasm of prostate 596839301 Z12.5 [id number] Divya Garcia NP [address] [address] 08/18/2022 10:16:23 08/18/2022 12:17:01 [id number] Divya Garcia NP [address] [address] 08/31/2022 08:58:53 08/31/2022 09:25:27 Hyperlipidemia 22674428 E78.5 Rosuvastat in 5 mg po nightly. Labs in 3 mo, November 2022. Essential hypertension 41625941 I10 <2 gm sodium diet. Avoid caffeine. No decongesta nts.Lisino pril 10 mg po daily. Obese 383547011 E66.9 Diet and exercise to reduce weight closer to BMI 25. [id number] GRACIELA Caceres [address] [address] 08/09/2023 09:46:05 08/09/2023 11:27:42 Essential hypertension 51727305 I10 Hyperlipidemia 74498202 E78.5 Obesity 974838417 E66.9 Disorder of prostate 302 [address]1988 N42.9 Impacted c erumen of bilateral ears 6421304972 610535 H61.23 Bilateral ears irrigated in clinic. Soft wax removed from right ear. Hard wax partially removed from left ear. Unable to completly disimpact left ear. Debrox ordered, patient instructed to use 5 drops twice daily times three days and return monday for a nurses visit to attempt irrigation again. Patient advised to cancel visit if symptoms subside. [id number] GRACIELA Caceres [address] [address] 08/11/2023 08:31:17 08/11/2023 12:02:36 Impacted cerumen in left ear 5359368293 101382 H61.22 Health Concerns Section Related Observation LastModified by Organization Detai ls LastModified Time None Recorded Concern Status LastModified by Organization Details LastModified Time None Recorded Advance Directives Directive N: Payers Encounter Date Sequence Insurance Name Policy Number Policy Clark Covered Member ID Clark Member ID Guarantor Name 08/17/2022 1 [employer] - [place] NOW (INDEMNITY) [id number] Nithin Jovel [id number] OI Nithin Jovel 08/18/2022 1 [employer] - [place]MNITY) [id number] Nithin Jovel [id number] OI Nithin Jovel 08/31/2022 1 [employer] - [employer] [id number] Nithin Jovel [id number] OI Nithin Jovel 08/09/2023 1 [employer] [id number] Nithin Jovel [id number] OI Nithin Jovel 08/11/2023 1 [employer] [id number] Nithin [facility] Med [id number] OI Nithin [facility] Notes Date Note Type Note Provider Name and Address Organization Details Recorded Time 08/17/2022 text/html Here for cough, mucus, wet cough. Has been having dark mucus coming out of chest with cough. Symptoms for 2 weeks. Using day/nightquil, delsym. No fever. HTN- Not on dec Divya Garcia NP [address], [facility] [address], [place], [address], [facility] 08/17/2022 17:02:15 08/31/2022 text/html Here for follow up on weight, htn, lipid. Feeling better since cold gone. BP likely in normal range without really changing diet. Feeling better. Has been outside more- yard work.No CP, SOB, Blurred vision. Divya Garcia NP [address], [address], [place], [address], [facility] [employer] [facility] [employer] 08/31/2022 09:24:00 08/09/2023 text/html Milton Jovel is a 53 year old male patient here to establish care. He previously saw Divya Garcia who is no longer with this clinic. Patient concerned with feeling of plugged ears. He woke up with altered hearing and ear pain. PE identifies MOHAN cerumen impaction. His past medical history is pertinent for hypertension. He currently takes lisinopril 10 mg PO daily. His bp on arrival today is 160/110. He has not taken his medication in a couple of months. He does not take his blood pressure at home. He will start taking his blood pressure at home and follow up in three months. He has a history of hyperlipidemia. He is taking rosuvastatin 5 mg PO HS. his last lipid panel (08/18/2022) resulted total cholesterol 257, triglycerides 171, and LDL 177. Will repeat today. He's brother was just diagnosed with prostate cancer. He is obese. Flu Shot: declinesCOVID vaccines: 2020, 2020TDap: 10/2017Colonoscopy: 2020, okay per pt Luci Diaz, EDUCATION DEAN [address] [facility], [facility] [address], [place], [address], [facility] 08/09/2023 11:26:35
--- OUTSIDE RECORDS SUMMARY | 2024-07-26 10:00 | XMS_ITS ---
Author Organization Unknown Medications Medication Instructions Effective Dates (start - stop) Status benzonatate 200 MG Oral Capsule 8T00:00:00Z - Completed amoxicillin 875 MG / clavula michi 125 MG Oral Tablet - Completed lisinopril 10 MG Oral Tablet [id number] 0:00:00Z - Completed cetirizine hydrochloride 10 MG Oral Tablet - Completed rosuvastatin calcium 10 MG O ral Tablet - Completed Patient Care team information Name Category Status Period Participants - - Proposed period not known -
--- OUTSIDE RECORDS SUMMARY | 2024-07-26 10:00 | XMS_ITS | CONTINUITY OF CARE DOCUMENT ---
Author Name javier herrera Address Unknown Organization [facility] Address [address] [place] [address] Phone [phone] Care Team Providers Care Ironer Sock Name Role Phone ERICA YUAN, VON Keith Unavailable INSURANCE PROVIDERS Payer name Policy type / Coverage type [place] red green party ID [employer] OPEN ACCESS Other [id number]
--- NOTE | 2024-07-26 12:01 | ED.LOWEXIN ---
HPI - Extremity Injury (Lower) General Chief Complaint: Extremity Injury, Lower <Lorraine Silver APRN - Last Filed: 07/26/24 12:03> Stated Complaint: worsening cellulitis - left foot <Lorraine Silver APRN - Last Filed: 07/26/24 12:03> Time Seen by Provider: 07/26/24 11:55 <Lorranie Silver APRN - Last Filed: 07/26/24 12:03> Focused HPI: Patient is a 54-year-old male who presents to the ER with worsening left lower extremity edema. He was seen here on Monday, 4 days ago, when he was placed on antibiotics and discharged home. Patient reports he has been taking his antibiotics as prescribed and reports he continues to experience pain and redness in that extremity. During the last ER visit he had an ultrasound performed of that left lower extremity and x-ray, which were negative. Patient denies any creases shortness of breath, chest pain, fevers, other signs/symptoms of infection GENERAL: Well-appearing, well-nourished, and in no acute distress. HEAD: Normocephalic, atraumatic. CHEST: Clear to auscultation. ?No respiratory distress. HEART: Regular rate and rhythm.? NEURO: ?Alert and oriented x3. Patient screened in triage and initial orders placed.? ?Additional care and disposition to be based upon?diagnostic testing and treatment. <Lorraine Silver APRN - Last Filed: 07/26/24 12:03> History of Present Illness HPI Narrative: Patient is a 54-year-old male who presents ER with concerns for infection left lower extremity. Seen a few days ago and diagnosed with cellulitis. Patient has been on Bactrim. Infection was initially located around the forefoot mainly at the MTPs with redness tracking proximally. The redness of the foot and pain the foot have improved but he continues to have some swelling of the lower extremity and mild redness in the calf and diarrhea where he had had a previously. No fevers or chills or sweats. Does not fully resolve despite only being longterm through his antibiotics and he want to make sure everything was healing properly. No chest pain or shortness of breath. <Arthur Messer MD - Last Filed: 07/26/24 14:11> Related Data Home Medications: Home Medications ?Medication ?Instructions ?Recorded ?Confirmed ?Last Taken ?Type rosuvastatin 10 mg tablet 10 mg PO DAILY 07/26/24 07/26/24 07/25/24 History <Lorraine Silver APRN - Last Filed: 07/26/24 12:03> Allergies/Adverse Reactions: Allergies Allergy/AdvReac Type Severity Reaction Status Date / Time latex Allergy Unknown Unknown Verified 07/26/24 13:44 <Lorraine Silver APRN - Last Filed: 07/26/24 12:03> Review of Systems Review of Systems: All systems reviewed & are unremarkable except as noted in HPI and below <Arthur Messer MD - Last Filed: 07/26/24 14:11> Constitutional: Constitutional: Reports no additional constitutional complaints <Arthur Messer MD - Last Filed: 07/26/24 14:11> ENT: Reports system reviewed and no additional complaints, except as documented <Arthur Messer MD - Last Filed: 07/26/24 14:11> Cardiovascular: Cardiovascular: Reports no additional cardiovascular complaints <Arthur Messer MD - Last Filed: 07/26/24 14:11> Musculoskeletal: Musculoskeletal: Reports no additional musculoskeletal complaints <Arthur Messer MD - Last Filed: 07/26/24 14:11> Integumentary/Breasts: Skin/Breast: Reports system reviewed and no additional complaints, except as docu <Arthur Messer MD - Last Filed: 07/26/24 14:11> [facility] Past Medical History Medical History: Medical History (Updated 07/26/24 @ 14:07 by Arthur Messer MD) Hyperlipidemia Hypertension <Lorraine Silver APRN - Last Filed: 07/26/24 12:03> Family History Family History: Family History (Updated 12/12/17 @ 12:44 by DOCTOR UNKNOWN) Father Family history of cardiovascular disease Sibling Family history of cardiovascular disease <Lorraine Silver APRN - Last Filed: 07/26/24 12:03> Social History Social History: Social History Gender identity (if verbalized by the patient): Female <Lorraine Silver APRN - Last Filed: 07/26/24 12:03> Exam Narrative: GENERAL: Well-appearing, well-nourished, and in no acute distress. HEAD: Normocephalic, atraumatic. ENT: Mucous membranes moist. EXTREMITIES: Left lower extremity with edema below the knee compared to the right side. Mild warmth of the extremity. Resolving cellulitis of the forefoot on the left. No palpable cords in the lower extremity. Normal right lower extremity. SKIN: Warm, dry, no rash. NEURO: Alert and oriented x3. PSYCH: Normal mood and affect. <Arthur Messer MD - Last Filed: 07/26/24 14:11> Course Course Emergency Course: Cell patient is having resolving cellulitis. White blood cell count trending down. Patient had a venous Doppler to rule out DVT on the previous visit, D-dimer felt to be elevated related to inflammatory process of cellulitis. No chest pain or shortness of breath. Continue home antibiotic. Karl wrap applied. Recommend did hose for home. Follow-up with PCP. <Arthur Messer MD - Last Filed: 07/26/24 14:11> Vital Signs Vital signs: Vital Signs Temperature 98 F 07/26/24 09:29 Pulse Rate 96 07/26/24 09:29 Respiratory Rate 20 07/26/24 09:29 Blood Pressure 145/89 H 07/26/24 09:29 Pulse Oximetry 100 07/26/24 09:29 Oxygen Delivery Room Air 07/26/24 09:29 Temperature 97.8 F 07/26/24 12:37 Pulse Rate 72 07/26/24 13:42 Respiratory Rate 18 07/26/24 13:42 Blood Pressure 143/92 H 07/26/24 13:42 Pulse Oximetry 99 07/26/24 13:42 Oxygen Delivery Room Air 07/26/24 09:29 <Lorraine Silver APRN - Last Filed: 07/26/24 12:03> Vital Signs Temperature 98 F 07/26/24 09:29 Pulse Rate 96 07/26/24 09:29 Respiratory Rate 20 07/26/24 09:29 Blood Pressure 145/89 H 07/26/24 09:29 Pulse Oximetry 100 07/26/24 09:29 Oxygen Delivery Room Air 07/26/24 09:29 Temperature 97.8 F 07/26/24 12:37 Pulse Rate 72 07/26/24 13:42 Respiratory Rate 18 07/26/24 13:42 Blood Pressure 143/92 H 07/26/24 13:42 Pulse Oximetry 99 07/26/24 13:42 Oxygen Delivery Room Air 07/26/24 09:29 <Arthur Messer MD - Last Filed: 07/26/24 14:11> MDM - Extremity Injury (Lower) Lab Data Result diagrams: 07/26/24 12:06 07/26/24 12:06 <Lorraine Silver APRN - Last Filed: 07/26/24 12:03> Labs: Lab Results 07/26/24 Range/Units 12:06 WBC 6.0 (4.5-10.0) K/mm3 RBC 4.80 (4.6-6.20) M/mm3 Hgb 15.4 (14.0-18.0) g/dL Hct 45.0 (42.0-52.0) % MCV 93.8 (80-100) fl MCH 32.1 (26-34) pg MCHC 34.2 (32-36) g/dl RDW 12.0 (11.5-14.5) % Plt Count 346 (150-375) k/mm3 MPV 9.0 (7.4-10.4) fl Immature Gran % (Auto) 0.8 H (0-0.5) % Neut % (Auto) 49.8 (45.5-73.1) % Lymph % (Auto) 30.0 (18.3-44.2) % [place] % (Auto) 15.2 H (2.6-8.5) % Eos % (Auto) 2.5 (0-4.4) % Baso % (Auto) 1.7 H (0.2-1.2) % Lymph # (Auto) 1.79 (0.9-3.2) K/mm3 [place] # (Auto) 0.9 H (0.1-0.6) K/mm3 Eos # (Auto) 0.2 (0-0.3) K/mm3 Baso # (Auto) 0.1 (0.0-0.1) K/mm3 Abs Immat Gran (auto) 0.05 H (0.00-0.031) K/mm3 Absolute Neuts (auto) 3.0 (1.3-6.7) K/mm3 Absolute Nucleated RBC 0.000 (0.0-0.012) K/mm3 Nucleated RBC % 0.0 (0.0-0.2) % PT 13.4 (11.1-14.7) Seconds INR 1.0 APTT 26.5 (22.3-36.8) Seconds D-Dimer 0.96 H (<0.48) ug/mL Sodium 136 L (137-145) mmol/L Potassium 4.1 (3.4-5.0) mmol/L Chloride 100 (98-107) mmol/L Carbon Dioxide 27 (22-30) mmol/L Anion Gap 9 (4-12) mmol/L BUN 18 (9-20) mg/dL Creatinine 0.93 (0.7-1.3) mg/dL Estim Creat Clear Calc 95 ml/min Estimated GFR > 60 (59 - ) Glucose 105 (65-110) mg/dL Lactic Acid 1.3 (0.7-2.0) mmol/L Calcium 10.0 (8.4-10.2) mg/dL Total Bilirubin 0.5 (0.2-1.3) mg/dL AST 66 H (17-59) U/L ALT 80 H (6-50) U/L Alkaline Phosphatase 87 (38-126) U/L Total Protein 8.0 (6.3-8.2) g/dL Albumin 4.4 (3.5-5.1) g/dL <Lorraine Silver, FURNACE CLEANER - Last Filed: 07/26/24 12:03> Lab Results 07/26/24 Range/Units 12:06 WBC 6.0 (4.5-10.0) K/mm3 RBC 4.80 (4.6-6.20) M/mm3 Hgb 15.4 (14.0-18.0) g/dL Hct 45.0 (42.0-52.0) % MCV 93.8 (80-100) fl MCH 32.1 (26-34) pg MCHC 34.2 (32-36) g/dl RDW 12.0 (11.5-14.5) % Plt Count 346 (150-375) k/mm3 MPV 9.0 (7.4-10.4) fl Immature Gran % (Auto) 0.8 H (0-0.5) % Neut % (Auto) 49.8 (45.5-73.1) % Lymph % (Auto) 30.0 (18.3-44.2) % [place] % (Auto) 15.2 H (2.6-8.5) % Eos % (Auto) 2.5 (0-4.4) % Baso % (Auto) 1.7 H (0.2-1.2) % Lymph # (Auto) 1.79 (0.9-3.2) K/mm3 [place] # (Auto) 0.9 H (0.1-0.6) K/mm3 Eos # (Auto) 0.2 (0-0.3) K/mm3 Baso # (Auto) 0.1 (0.0-0.1) K/mm3 Abs Immat Gran (auto) 0.05 H (0.00-0.031) K/mm3 Absolute Neuts (auto) 3.0 (1.3-6.7) K/mm3 Absolute Nucleated RBC 0.000 (0.0-0.012) K/mm3 Nucleated RBC % 0.0 (0.0-0.2) % PT 13.4 (11.1-14.7) Seconds INR 1.0 APTT 26.5 (22.3-36.8) Seconds D-Dimer 0.96 H (<0.48) ug/mL Sodium 136 L (137-145) mmol/L Potassium 4.1 (3.4-5.0) mmol/L Chloride 100 (98-107) mmol/L Carbon Dioxide 27 (22-30) mmol/L Anion Gap 9 (4-12) mmol/L BUN 18 (9-20) mg/dL Creatinine 0.93 (0.7-1.3) mg/dL Estim Creat Clear Calc 95 ml/min Estimated GFR > 60 (59 - ) Glucose 105 (65-110) mg/dL Lactic Acid 1.3 (0.7-2.0) mmol/L Calcium 10.0 (8.4-10.2) mg/dL Total Bilirubin 0.5 (0.2-1.3) mg/dL AST 66 H (17-59) U/L ALT 80 H (6-50) U/L Alkaline Phosphatase 87 (38-126) U/L Total Protein 8.0 (6.3-8.2) g/dL Albumin 4.4 (3.5-5.1) g/dL <Arthur Messer MD - Last Filed: 07/26/24 14:11> Discharge Plan Discharge Clinical Impression: Cellulitis <Lorraine Silver APRN - Last Filed: 07/26/24 12:03> Patient Disposition: Home, Self-Care <Lorraine Silver APRN - Last Filed: 07/26/24 12:03> Condition: Stable <Lorraine Silver APRN - Last Filed: 07/26/24 12:03> Instructions: Antibiotic Form, Cellulitis (ED) <Lorraine Silver APRN - Last Filed: 07/26/24 12:03> Additional Instructions: Continue your home antibiotics. Follow-up with your primary care doctor. Return to the ER if you have chest pain with shortness of breath. <Lorraine Silver APRN - Last Filed: 07/26/24 12:03> Patient Language: Italian <Lorraine Silver APRN - Last Filed: 07/26/24 12:03> Prescriptions: No Action rosuvastatin 10 mg tablet 10 mg PO DAILY <Lorraine Silver APRN - Last Filed: 07/26/24 12:03> Follow-up/Referrals: UNKNOWN,DOCTOR [Primary Care Provider] - 1 Week <Lorraine Silver APRN - Last Filed: 07/26/24 12:03>
[2024-07-26 12:16] LABS: Basophils Absolute Auto 0.1 K/mm3 (0.0-0.1); Basophils Percent Auto 1.7 % (0.2-1.2); Eosinophils Absolute Auto 0.2 K/mm3 (0-0.3); Eosinophils Percent Auto 2.5 % (0-4.4); Hemoglobin 15.4 g/dL (14.0-18.0); Immature Granulocyte Absolute 0.05 K/mm3 (0.00-0.031); Immature Granulocyte Percent A 0.8 % (0-0.5); Lymphocytes Absolute Auto 1.79 K/mm3 (0.9-3.2); Mean Corpuscular HGB Conc 34.2 g/dl (32-36); Mean Corpuscular Hemoglobin 32.1 pg (26-34); Mean Corpuscular Volume 93.8 fl (80-100); Monocytes Absolute Auto 0.9 K/mm3 (0.1-0.6); Monocytes Percent Auto 15.2 % (2.6-8.5); Neutrophils Percent Auto 49.8 % (45.5-73.1); Platelet Count Result 346 k/mm3 (150-375)
[2024-07-26 12:24] LABS: Lactic Acid Reflex 1.3 mmol/L (0.7-2.0)
[2024-07-26 12:25] LABS: Alanine Aminotransferase 80 U/L (6-50); Albumin Level 4.4 g/dL (3.5-5.1); Alkaline Phosphatase 87 U/L (38-126); Anion Gap 9 mmol/L (4-12); Aspartate Amino Transferase 66 U/L (17-59); Bilirubin,Total 0.5 mg/dL (0.2-1.3); Blood Urea Nitrogen 18 mg/dL (9-20); Carbon Dioxide 27 mmol/L (22-30); Chloride 100 mmol/L (98-107); Estimated CRCL calculation 95 ml/min; Estimated Glomerular Filt Rate > 60; Glucose 105 mg/dL (65-110); Potassium 4.1 mmol/L (3.4-5.0); Sodium 136 mmol/L (137-145)
[2024-07-26 12:29] LABS: Partial Thromboplastin Time 26.5 Seconds (22.3-36.8); Prothrombin Time 13.4 Seconds (11.1-14.7)
[2024-07-26 12:33] LABS: D Dimer 0.96 ug/mL (<0.48)
[2024-07-26 12:37] VITALS: BP 154/94; PULSE 70; RESP 18; TEMP 36.6; O2SAT 100
[2024-07-26] MEDS: IBUPROFEN 600 MG TABLET PO (12:38)
[2024-07-26] MEDS: HYDROcodone/acetaminophen (*CRX) 5-325 MG TABLET 1 TAB PO (12:38)
--- OUTSIDE RECORDS SUMMARY | 2024-07-26 12:49 | XMS_ITS | CONTINUITY OF CARE DOCUMENT ---
Author Name javier herrera Address Unknown Organization [facility] Address [address] [place] [address] Phone [phone] Care Team Providers Care Professor Of Biological Sciences Name Role Phone ERICA YUAN, VON Keith Unavailable [phone] INSURANCE PROVIDERS Payer name Policy type / Coverage type [place] red republican ID [employer] OPEN ACCESS Other [id number]
[2024-07-26 13:42] VITALS: BP 143/92; PULSE 72; RESP 18; O2SAT 99
--- NOTE | 2024-07-26 13:58 | ED_ITS ---
HPI - General Adult General Chief complaint: Extremity Injury, Lower Stated complaint: worsening cellulitis - left foot Time Seen by Provider: 07/26/24 11:55 History of Present Illness HPI narrative: Patient is a 54-year-old male who presents ER with concerns for infection left lower extremity. Seen a few days ago and diagnosed with cellulitis. Patient has been on Bactrim. Infection was initially located around the forefoot mainly at the MTPs with redness tracking proximally. The redness of the foot and pain the foot have improved but he continues to have some swelling of the lower extremity and mild redness in the calf and diarrhea where he had had a previously. No fevers or chills or sweats. Does not fully resolve despite only being senior living through his antibiotics and he want to make sure everything was healing properly. No chest pain or shortness of breath. Related Data Home Medications ?Medication ?Instructions ?Recorded ?Confirmed ?Last Taken ?Type rosuvastatin 10 mg tablet 10 mg PO DAILY 07/26/24 07/26/24 07/25/24 History Allergies Allergy/AdvReac Type Severity Reaction Status Date / Time latex Allergy Unknown Unknown Verified 07/26/24 13:44 Review of Systems 2 Review of Systems: All systems reviewed & are unremarkable except as noted in HPI and below Constitutional: Constitutional: Reports no additional constitutional complaints Cardiovascular: Cardiovascular: Reports no additional cardiovascular complaints Respiratory: Respiratory: Reports no additional respiratory complaints Musculoskeletal: Musculoskeletal: Reports no additional musculoskeletal complaints Integumentary/Breasts: Skin/Breast: Reports system reviewed and no additional complaints, except as docu PMFSH Past Medical History Medical History (Updated 07/26/24 @ 14:07 by Arthur Messer MD) Hyperlipidemia Hypertension Family History Family History (Updated 12/12/17 @ 12:44 by DOCTOR UNKNOWN) Father Family history of cardiovascular disease Sibling Family history of cardiovascular disease Social History Social History Gender identity (if verbalized by the patient): Female Exam 2 Narrative: GENERAL: Well-appearing, well-nourished, and in no acute distress. HEAD: Normocephalic, atraumatic. ENT: Mucous membranes moist. EXTREMITIES: Left lower extremity with edema below the knee compared to the right side. Mild warmth of the extremity. Resolving cellulitis of the forefoot on the left. No palpable cords in the lower extremity. Normal right lower extremity. SKIN: Warm, dry, no rash. NEURO: Alert and oriented x3. PSYCH: Normal mood and affect. Course Course Emergency Course: Cell patient is having resolving cellulitis. White blood cell count trending down. Patient had a venous Doppler to rule out DVT on the previous visit, D- dimer felt to be elevated related to inflammatory process of cellulitis. No chest pain or shortness of breath. Continue home antibiotic. Karl wrap applied. Recommend did hose for home. Follow-up with PCP. Vital Signs Vital signs: Vital Signs Temperature 98 F 07/26/24 09:29 Pulse Rate 96 07/26/24 09:29 Respiratory Rate 20 07/26/24 09:29 Blood Pressure 145/89 H 07/26/24 09:29 Pulse Oximetry 100 07/26/24 09:29 Oxygen Delivery Room Air 07/26/24 09:29 Temperature 97.8 F 07/26/24 12:37 Pulse Rate 72 07/26/24 13:42 Respiratory Rate 18 07/26/24 13:42 Blood Pressure 143/92 H 07/26/24 13:42 Pulse Oximetry 99 07/26/24 13:42 Oxygen Delivery Room Air 07/26/24 09:29 Medical Decision Making Vital Signs Vital Signs: Vital Signs Temperature 98 F 07/26/24 09:29 Pulse Rate 96 07/26/24 09:29 Respiratory Rate 20 07/26/24 09:29 Blood Pressure 145/89 H 07/26/24 09:29 Pulse Oximetry 100 07/26/24 09:29 Oxygen Delivery Room Air 07/26/24 09:29 Temperature 97.8 F 07/26/24 12:37 Pulse Rate 72 07/26/24 13:42 Respiratory Rate 18 07/26/24 13:42 Blood Pressure 143/92 H 07/26/24 13:42 Pulse Oximetry 99 07/26/24 13:42 Oxygen Delivery Room Air 07/26/24 09:29 Lab Data 07/26/24 12:06 07/26/24 12:06 Labs: Lab Results 07/26/24 Range/Units 12:06 WBC 6.0 (4.5-10.0) K/mm3 RBC 4.80 (4.6-6.20) M/mm3 Hgb 15.4 (14.0-18.0) g/dL Hct 45.0 (42.0-52.0) % MCV 93.8 (80-100) fl MCH 32.1 (26-34) pg MCHC 34.2 (32-36) g/dl RDW 12.0 (11.5-14.5) % Plt Count 346 (150-375) k/mm3 MPV 9.0 (7.4-10.4) fl Immature Gran % (Auto) 0.8 H (0-0.5) % Neut % (Auto) 49.8 (45.5-73.1) % Lymph % (Auto) 30.0 (18.3-44.2) % Shelby % (Auto) 15.2 H (2.6-8.5) % Eos % (Auto) 2.5 (0-4.4) % Baso % (Auto) 1.7 H (0.2-1.2) % Lymph # (Auto) 1.79 (0.9-3.2) K/mm3 Shelby # (Auto) 0.9 H (0.1-0.6) K/mm3 Eos # (Auto) 0.2 (0-0.3) K/mm3 Baso # (Auto) 0.1 (0.0-0.1) K/mm3 Abs Immat Gran (auto) 0.05 H (0.00-0.031) K/mm3 Absolute Neuts (auto) 3.0 (1.3-6.7) K/mm3 Absolute Nucleated RBC 0.000 (0.0-0.012) K/mm3 Nucleated RBC % 0.0 (0.0-0.2) % PT 13.4 (11.1-14.7) Seconds INR 1.0 APTT 26.5 (22.3-36.8) Seconds D-Dimer 0.96 H (<0.48) ug/mL Sodium 136 L (137-145) mmol/L Potassium 4.1 (3.4-5.0) mmol/L Chloride 100 (98-107) mmol/L Carbon Dioxide 27 (22-30) mmol/L Anion Gap 9 (4-12) mmol/L BUN 18 (9-20) mg/dL Creatinine 0.93 (0.7-1.3) mg/dL Estim Creat Clear Calc 95 ml/min Estimated GFR > 60 (59 - ) Glucose 105 (65-110) mg/dL Lactic Acid 1.3 (0.7-2.0) mmol/L Calcium 10.0 (8.4-10.2) mg/dL Total Bilirubin 0.5 (0.2-1.3) mg/dL AST 66 H (17-59) U/L ALT 80 H (6-50) U/L Alkaline Phosphatase 87 (38-126) U/L Total Protein 8.0 (6.3-8.2) g/dL Albumin 4.4 (3.5-5.1) g/dL Discharge Plan Discharge Clinical Impression: Cellulitis Patient Disposition: Home, Self-Care Condition: Stable Instructions: Antibiotic Form, Cellulitis (ED) Patient Language: Indonesian Prescriptions: No Action rosuvastatin 10 mg tablet 10 mg PO DAILY Follow-up/Referrals: UNKNOWN,DOCTOR [Primary Care Provider] -
== END 2024-07-26 16:23 | disposition home or self-care (01) ==
PROVIDERS: Registered Nurse; Emergency Provider Emergency Medicine
DX: L03.116 Cellulitis of left lower limb (principal); I10 Essential (primary) hypertension; E78.5 Hyperlipidemia, unspecified
CPT/HCPCS: 36415; 80053; 83605; 85025; 85380; 85610; 85730; 87040; 99283; A9270